=== PATIENT | male | born 2005 | race African-American/Black ===

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

== ENCOUNTER 2025-04-10 11:32 | Emergency (ER) | payer OTHER, SELFPAY ==
--- NOTE | ~2025-04-10 | XR_ITS ---
EXAMINATION: XR HAND 3 OR MORE VIEWS LEFT HISTORY: pain s/p punch wall COMPARISON: There are no prior studies available for comparison. FINDINGS: Three views of the left hand are submitted. There is an expansile lucent cortically based lesion involving the distal radial metaphysis which likely represents a nonossified fibroma or bone cyst. Osseous mineralization is otherwise normal. There is no fracture or dislocation. The joint spaces are preserved. The soft tissues are unremarkable. XR/XR hand LT min 3V IMPRESSION: No evidence of fracture of the left hand. 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 Electronically signed by: Jean Carlos Beard MD 04/10/2025 12:59 PM EDT
[2025-04-10 12:05] VITALS: BP 123/65; PULSE 74; RESP 16; TEMP 36.5; O2SAT 99; BMI 17.9
--- NOTE | 2025-04-10 12:05 | ED.UPPEXIN ---
HPI - Extremity Injury (Upper) General Chief Complaint: Extremity Injury, Upper Stated Complaint: L Hand Injury 04/10/25 Time Seen by Provider: 04/10/25 12:47 Source: patient and old records reviewed Mode of arrival: ambulatory Limitations: no limitations History of Present Illness ED Provider: ELYSE HPI narrative: 19 yo male L hand dominant out of anger punched a wall. He now c/o bruise to L 4th MCP but no numbness, weakness, no prior trauma to this area. MD complaint: injury to: left and hand Onset (ago): day(s) (1) Other Extremity Injury: left: hand Other injuries: none Handedness: left Place: home Severity: mild Relieving factors: immobilization Exacerbating factors: movement of extremity Context: direct blow Associated symptoms: denies other symptoms Related Data Home Medications ?Medication ?Instructions ?Recorded ?Confirmed No Known Home Meds 11/11/23 11/11/23 Allergies Allergy/AdvReac Type Severity Reaction Status Date / Time Seasonal Allergies Allergy Sneezing Verified 04/10/25 12:07 Review of Systems Review of Systems: Constitutional : No Fever, No Chills Cardiovascular : No Chest Pain, No SOB Respiratory : No Cough, No Dyspnea Gastrointestinal : No Nausea, No Vomiting, No Diarrhea, No abdominal Pain Genitourinary : No Dysuria, No Hematuria Musculoskeletal : positive joint pain, No Myalgias, pos Joint Swelling Skin : No Skin lacerations, No rash Neuro : No Weakness, No Numbness, No Loss of Consciousness All other systems reviewed and are negative Yes all other systems are reviewed and are negative [facility] Past Medical History Attestation statement: The following information was validated with the patient. Source: old records reviewed Medical History (Updated 04/10/25 @ 13:50 by Kelly Dow DO) No pertinent past medical history Social History Social History Substance Use Type: Marijuana Advance Directives: No Advance Directives Information Provided: Yes Do you have a plan to hurt others: No Plan Physical Exam Vital Signs: Vital Signs: Last Vital Signs Temp 97.7 F 04/10/25 13:13 Pulse 74 04/10/25 13:13 Resp 16 04/10/25 13:13 BP 123/65 04/10/25 13:13 Pulse Ox 99 04/10/25 13:13 O2 Del Method Room Air 04/10/25 13:13 BMI result Body Mass Index 17.9 Appearance: Alert. Oriented X3. No acute distress. Eyes: Pupils equal, round and reactive to light. ENT: Pharynx normal. Neck: Normal inspection. CVS: Pulses normal. Respiratory: No respiratory distress. Abdomen: Soft and nontender. Skin: Skin warm and dry. Normal skin color. Extremities: No lower extremity edema. L hand 4th MCP ttp along area but no other swelling, NV intact, small contusion along L 4th MCP, BCR and SILT intact Neuro: Oriented X 3. No motor deficit. No sensory deficit. Course Course Course Narrative: This is an RME: Additional HPI, ROS, PE not included below will be deferred to primary provider. RME assessment and note performed by: Rochelle Gomez PA-C This is a 18-male who presents to the Er with complaints of left hand pain. Reports that he was upset and punched a wall. L hand nontender, no obvious bony deformity or swelling. Plan: xrays, further ER eval needed Medical Decision Making Medical Decision Making MDM Narrative: 19 yo male L hand dominant punched a wall but clinically low susp for fracture will obtain xray, place in INGRIS wrap. NV intact. No other injuries noted. Differential Diagnosis Differential Diagnoses: The differential diagnosis associated with the presentation includes contusion, low susp fracture Admission/Observation Consideration of admission/observation: Escalation of care including admission/observation considered can be managed as outpatient Independent Interpretation I performed an independent interpretation of an: Plain X-Ray (no fracture) Radiology Impression Discussion of test interpretation with radiology: I have reviewed the radiologist's reading. External Record Review External record reviewed: Outpatient record Prescription Management I considered prescription management with: Pain Medication Discharge Plan Discharge Clinical Impression: Contusion of hand Patient Disposition: Home, Self-Care Instructions: Contusion in Adults (ED) Additional Instructions: no fracture xray shows possible congenital lesion if any pain or issues can follow up with PCP but no acute concern at this time wear ingris wrap for 3 days return for any worsening symptoms or concerns FINDINGS: Three views of the left hand are submitted. There is an expansile lucent cortically based lesion involving the distal radial metaphysis which likely represents a nonossified fibroma or bone cyst. Osseous mineralization is otherwise normal. There is no fracture or dislocation. The joint spaces are preserved. The soft tissues are unremarkable. XR/XR hand LT min 3V IMPRESSION: No evidence of fracture of the left hand. 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 Prescriptions: No Action No Known Home Meds Interventions: ED Discharge Assessment Last Done: 04/10/25 13:13 Discharge Date/Time: 04/10/25 13:13 Print Language: Cuban
[2025-04-10 13:13] VITALS: BP 123/65; PULSE 74; RESP 16; TEMP 36.5; O2SAT 99
== END 2025-04-10 13:13 | disposition home or self-care (01) ==
PROVIDERS: Emergency Provider Emergency Medicine
DX: S60.222A Contusion of left hand, initial encounter (principal); W22.01XA Walked into wall, initial encounter; Y93.9 Activity, unspecified; Y92.9 Unspecified place or not applicable
CPT/HCPCS: 73130; 99282; 99283

== ENCOUNTER → 2025-04-10 12:06 | Outpatient (BNV) | payer OTHER, SELFPAY | PROVIDERS: Emergency Provider Emergency Medicine; Visit Provider Radiology Diagnostic Radiology | DX: M79.642 Pain in left hand (principal) | CPT/HCPCS: 73130 ==